=== PATIENT | female | born 1980 | race Caucasian/White ===

== ENCOUNTER 2020-03-01 13:14 | Emergency (ER) | payer BC, SELFPAY ==
--- NOTE | ~2020-03-01 | XR_ITS ---
EXAMINATION: XR chest 1V portable DATE: 03/01/2020 14:35 INDICATION: Cough and shortness of breath. TECHNIQUE: A single frontal view of the chest was obtained. COMPARISON: Chest 2 views 11/02/2014, chest CT 11/03/2015 FINDINGS: The chest demonstrates clear lungs without pneumonia, pleural effusion, or pneumothorax. Th e heart size is normal. IMPRESSION: 1. No acute cardiopulmonary disease. Reviewed, dictated and finalized at location B.
[2020-03-01 13:16] VITALS: BP 143/70; PULSE 78; RESP 20; TEMP 37; O2SAT 98
--- NOTE | 2020-03-01 13:26 | ED.GENADULT ---
HPI - General Adult General Chief complaint: Upper Respiratory Infection Stated complaint: sob,cough Time Seen by Provider: 03/01/20 13:26 Source: patient History of Present Illness HPI narrative: 39 years old white female presents with coughing, sore throat, not feeling well for the last 5 days associated with loss of smell and taste. Patient denies exposure to anybody known to have COVID-19. Patient lives with her family Related Data Home Medications Medication Instructions Recorded Confirmed vit [id number] 07/11/19 Allergies Allergy/AdvReac Type Severity Reaction Status Date / Time No Known Allergies Allergy Unknown Verified 07/11/19 13:52 Review of Systems Review of Systems: Narrative: CONSTITUTIONAL: Denies fever, chills, or sweats. EYES: Denies visual changes, redness, or discharge. ENT: Denies rhinorrhea, congestion, sore throat, or otalgia. CARDIOVASCULAR: Denies chest pain, palpitations, or edema. RESPIRATORY: Denies cough or dyspnea. GASTROINTESTINAL: Denies abdominal pain, nausea, vomiting, or diarrhea. GENITOURINARY: Denies dysuria or hematuria. SKIN: Denies rash or itching. MUSCULOSKELETAL: Denies back pain, joint pain, or myalgia. NEUROLOGIC: Denies headache, numbness, or weakness. PSYCHIATRIC: Denies anxiety or depression. [facility] Social History Social History Smoking status: Never smoker Alcohol intake: current Exam Narrative: Exam Narrative: General appearance: Well-developed, well-nourished, does not look in pain or distress Skin: Normal color Head: Normocephalic, nontraumatic Eyes: Clear conjunctiva ENT: Oropharynx normal, ears normal, nose normal Neck: Supple, nontender Chest and respiratory: Airway patent, no respiratory distress, no accessory muscle use Heart: Regular rate/rhythm Abdomen: Soft, nontender, no organomegaly, quiet bowel sounds Vascular: Normal peripheral pulses, normal capillary refill. Musculoskeletal: Normal range of motion, nontender back Neurologic: Alert and oriented ?3, RN GASTROENTEROLOGY is normal as tested, no gross motor deficit Course Course Emergency Course: Stable Consultations Consultation #1: Dr. Cormier Date: 03/01/20 Time: 14:57 Vital Signs Vital signs: Vital Signs Temperature 37.0 C 03/01/20 13:16 Pulse Rate 78 03/01/20 13:16 Respiratory Rate 20 03/01/20 13:16 Blood Pressure 143/70 H 03/01/20 13:16 Pulse Oximetry 98 03/01/20 13:16 Temperature 37.0 C 03/01/20 13:16 Pulse Rate 78 03/01/20 13:16 Respiratory Rate 20 03/01/20 13:16 Blood Pressure 143/70 H 03/01/20 13:16 Pulse Oximetry 98 03/01/20 13:16 Medical Decision Making MDM Narrative Medical decision making narrative: upper respiratory viral infection including COVID-19 is my concern. Labs, chest x-ray, rapid strep test, COVID-19 test ordered. Further plan to follow Vital Signs Vital Signs: Vital Signs Temperature 37.0 C 03/01/20 13:16 Pulse Rate 78 03/01/20 13:16 Respiratory Rate 20 03/01/20 13:16 Blood Pressure 143/70 H 03/01/20 13:16 Pulse Oximetry 98 03/01/20 13:16 Temperature 37.0 C 03/01/20 13:16 Pulse Rate 78 03/01/20 13:16 Respiratory Rate 20 03/01/20 13:16 Blood Pressure 143/70 H 03/01/20 13:16 Pulse Oximetry 98 03/01/20 13:16 Lab Data Result diagrams: 03/01/20 13:55 03/01/20 13:55 Labs: Lab Results 03/01/20 03/01/20 03/01/20 Range/Units 13:30 13:55 13:55 WBC 7.0 (4.5-10.0) K/mm3 RBC 5.02 (4.2-5.4) M/mm3 Hgb 14.4 (12.0-15.0) g/dL Hct 42.9 (37.0-47.0) % MCV 85.5 (80-100) fl MCH 28.7 (26-34) pg MC
[2020-03-01 14:03] LABS: Basophils Percent Auto 0.6 % (0.2-1.2); Eosinophils Absolute Auto 0.3 K/mm3 (0-0.3); Eosinophils Percent Auto 4.8 % (0-4.4); Hematocrit 42.9 % (37.0-47.0); Hemoglobin 14.4 g/dL (12.0-15.0); Immature Granulocyte Absolute 0.02 K/mm3 (0.00-0.031); Immature Granulocyte Percent A 0.3 % (0-0.5); Lymphocytes Absolute Auto 2.29 K/mm3 (0.9-3.2); Lymphocytes Percent Auto 32.5 % (18.3-44.2); Mean Corpuscular HGB Conc 33.6 g/dl (32-36); Mean Corpuscular Hemoglobin 28.7 pg (26-34); Mean Corpuscular Volume 85.5 fl (80-100); Mean Platelet Volume 10.2 fl (7.4-10.4); Monocytes Absolute Auto 0.6 K/mm3 (0.1-0.6); Monocytes Percent Auto 8.9 % (2.6-8.5); Neutrophils Absolute Auto 3.7 K/mm3 (1.3-6.7); Neutrophils Percent Auto 52.9 % (45.5-73.1); Platelet Count Result 269 k/mm3 (150-375); Red Blood Count 5.02 M/mm3 (4.2-5.4); Red Cell Distribution Width 13.2 % (11.5-14.5)
[2020-03-01 14:14] LABS: Alanine Aminotransferase 14 U/L (4-35); Albumin Level 4.1 g/dL (3.5-5.1); Alkaline Phosphatase 63 U/L (38-126); Anion Gap 6 mmol/L (8-16); Aspartate Amino Transferase 21 U/L (14-36); Bilirubin,Total 0.4 mg/dL (0.2-1.3); Blood Urea Nitrogen 8 mg/dL (7-17); Carbon Dioxide 27 mmol/L (22-30); Chloride 105 mmol/L (98-107); Estimated CRCL calculation 14 ml/min; Estimated Glomerular Filt Rate > 60; Glucose 103 mg/dL (65-105); Potassium 4.4 mmol/L (3.4-5.0); Sodium 138 mmol/L (137-145)
[2020-03-01 15:04] VITALS: BP 122/78; PULSE 80; RESP 18; O2SAT 99
[2020-03-01 22:50] LABS: SARS-CoV-2 RNA PCR Negative
== END 2020-03-01 15:06 | disposition home or self-care (01) ==
PROVIDERS: Emergency Provider Emergency Medicine; PCP Family Medicine
DX: J06.9 Acute upper respiratory infection, unspecified (principal); Z20.828 Contact with and (suspected) exposure to other viral communicable diseases
CPT/HCPCS: 36415; 71045; 80053; 85025; 87081; 87635; 87880; 99283; C9803; U0003

== ENCOUNTER → 2021-04-06 17:49 | Outpatient (CLI) | payer OTHER, SELFPAY ==
--- NOTE | ~2021-04-06 | MM_ITS ---
EXAMINATION: MM screening jair BI w kodi HISTORY: Screening mammogram TECHNIQUE: Craniocaudal and mediolateral oblique 3-D tomosynthesis images were obtained and synthetic 2-D images were generated. CAD analysis was submitted and interpreted. COMPARISON: No prior mammogram is available for comparison at this institution. BREAST PARENCHYMAL COMPOSITION: There are scattered areas of fibroglandular density. FINDINGS: There is no evidence of suspicious mass, calcification, or architectural distortion to sugg est malignancy in either breast. There has been no suspicious interval change. IMPRESSION: 1. No mammographic evidence of malignancy. 2. Recommend routine screening mammography in one year. BI-RADS Category 1: Negative Reviewed, dictated and finalized at location A.
== END ==
PROVIDERS: PCP Family Medicine; Visit Provider Family Medicine
DX: Z12.31 Encounter for screening mammogram for malignant neoplasm of breast (principal)
CPT/HCPCS: 77063; 77067

== ENCOUNTER 2021-06-14 22:27 | Emergency (ER) | payer OTHER, SELFPAY ==
--- NOTE | ~2021-06-14 | CT_ITS ---
EXAMINATION: CT abdomen pelvis wo con DATE: 06/14/2021 23:32 INDICATION: Bilateral flank pain TECHNIQUE: Computed tomography (CT) of the abdomen and pelvis was performed without intravenous contr ast. The dose-length product (DLP) was 1504.97 mGy-cm. Automated exposure control and iterative recon struction technique were employed. COMPARISON: None FINDINGS: Minimal dependent atelectasis is present in the lung bases. The heart size is normal. The l iver, spleen, pancreas, gallbladder, and adrenal glands are normal. The kidneys are unremarkable. No stones are identified in the kidneys, ureters, or bladder. There is no hydronephrosis or hydroureter. No pathologically enlarged abdominal or pelvic lymph nodes are identified. There is no free intraper itoneal gas or evidence of bowel obstruction. The appendix is normal. There is a 2.9 cm cyst of the l eft ovary. There is severe lumbar spondylosis at L5-S1. A fat-containing umbilical hernia is noted. IMPRESSION: 1. No CT correlate for the patient's symptoms. Reviewed, dictated and finalized at location A. [employer]
[2021-06-14 22:30] VITALS: BP 132/79; PULSE 106; RESP 20; TEMP 36.8; O2SAT 97
[2021-06-14 22:38] VITALS: BP 132/79; PULSE 106; RESP 18; TEMP 36.8; O2SAT 100
[2021-06-14 22:57] LABS: Add Urine Microscopic? YES; Appearance Urine Cloudy (Clear); Bilirubin Urine Negative (Negative); Blood Urine Negative (Negative); Color Urine Yellow (Yellow); Glucose Urine UA Negative (Negative); Ketones Urine Negative (Negative); Leukocyte Esterase Ur Negative LEU/UL (Negative); Mucus Urine Few /lpf; Nitrate Urine Negative (Negative); Protein Urine Negative (Negative); RBC Urine 0-2 /hpf (0-2); Specific Grav Ur 1.021 (1.001-1.035); Squamous Epithelial Cell Urine Many /hpf (Few); Urobilinogen Urine Negative mg/dL (<2.0); WBC Urine 0-3 /hpf
--- NOTE | 2021-06-14 23:05 | ED.BACK ---
HPI - Back Pain/Injury General Chief Complaint: Urogenital-Female Stated Complaint: flank pain, N/V, difficulty urinating Time Seen by Provider: 06/14/21 22:42 Source: patient and RN notes reviewed Mode of arrival: ambulatory Limitations: no limitations History of Present Illness HPI Narrative: This is a 40 year old female who presents for evaluation of bilateral lower back pain. She developed nausea and dysuria on Friday. She developed bilateral lower back pain today, and her pain has been constant. She describes her pain as being punched . She has not taken anything for pain and her pain is worse with movement. She denies fever, chills, abnormal vaginal discharged or vomiting. She denies history of kidney stones. Related Data Allergies Allergy/AdvReac Type Severity Reaction Status Date / Time No Known Allergies Allergy Unknown Verified 06/14/21 22:39 Review of Systems Review of Systems: All systems reviewed & are unremarkable except as noted in HPI and below PMFSH Past Medical History Medical History (Updated 06/15/21 @ 00:51 by Jeniffer Mercer MD) Anxiety Surgical History Surgical History (Updated 06/14/21 @ 23:07 by Jeniffer Mercer MD) H/O section Social History Social History (Updated 05/09/21 @ 11:05 by Anum Carpenter CMA) Alcohol intake: current Substance use type: does not use Gender identity (if verbalized by the patient): Female Exam Const: General: alert Nutritional Appearance: obese Orientation/consciousness: patient oriented x3 Other: patient is crying in pain Neck: Neck: no lymphadenopathy Resp: Effort & Inspection: normal respiratory effort and no retractions Auscultation: clear to auscultation bilaterally Cardio: Rate: regular rate Rhythm: regular rhythm Heart sounds: no murmurs GI: GI Palp: Yes Soft to palpation, No Tenderness to palpation present (GI) and No Guarding due to palpation present (GI) Auscultation: normal bowel sounds : General: Yes no CVA tenderness Back/Spine/Pelvis: Back: no CVA tenderness Thoracic/Lumbar Spine: pain with thoraco-lumbar ROM and paraspinal muscle tenderness Skin: General skin exam: normal color Rashes: no rashes Neuro: General: patient oriented x3, moves all extremities and CN's II-XI intact bilaterally Extrem: General: normal to inspection Psych: Mental Status: mental status grossly normal Affect: normal affect Course Reevaluation(s) Reevaluation #1: Patient states she feels better. I discussed labs and UA are unremarkable. CT scan shows left ovarian cyst but I Think her pain is due to musculoskeletal back pain. I discussed with patient discharge plan and treatment. Date: 06/15/21 Time: 00:46 Vital Signs Vital signs: Vital Signs Temperature 98.2 F 06/14/21 22:30 Pulse Rate 106 H 06/14/21 22:30 Respiratory Rate 20 06/14/21 22:30 Blood Pressure 132/79 06/14/21 22:30 Pulse Oximetry 97 06/14/21 22:30 Temperature 98.2 F 06/14/21 22:38 Pulse Rate 100 06/14/21 23:58 Respiratory Rate 16 06/14/21 23:58 Blood Pressure 130/76 06/14/21 23:58 Pulse Oximetry 99 06/14/21 23:58 MDM - Back Pain/Injury Lab Data Attestation: I reviewed the patient's lab results. Result diagrams: 06/14/21 23:01 06/14/21 23:01 Labs: Lab Results 06/14/21 06/14/21 06/14/21 Range/Units 22:45 23:01 23:01 WBC 7.8 (4.5-10.0) K/mm3 RBC 4.56 (4.2-5.4) M/mm3 Hgb 13.6 (12.0-15.0) g/dL Hct 40.3 (37.0-47.0) % MCV 88.4 (80-100) fl MCH 29.8 (26-34) pg MCHC 33.7 (32-36) g/dl RDW 12.9 (11.5-14.5) % Plt Count 244 (150-375) k/mm3 MPV 9.8 (7.4-10.4) fl Immature Gran % (Auto) 0.1 (0-0.5) % Neut % (Auto) 61.4 (45.5-73.1) % Lymph % (Auto) 29.1 (18.3-44.2) % Crockett % (Auto) 6.3 (2.6-8.5) % Eos % (Auto) 2.8 (0-4.4) % Baso % (Auto) 0.3 (0.2-1.2) % Lymph # (Auto) 2.26 (0.9-3.2) K/mm3 [place]ckett
[2021-06-14 23:06] LABS: Basophils Percent Auto 0.3 % (0.2-1.2); Eosinophils Absolute Auto 0.2 K/mm3 (0-0.3); Eosinophils Percent Auto 2.8 % (0-4.4); Hematocrit 40.3 % (37.0-47.0); Hemoglobin 13.6 g/dL (12.0-15.0); Immature Granulocyte Absolute 0.01 K/mm3 (0.00-0.031); Immature Granulocyte Percent A 0.1 % (0-0.5); Lymphocytes Absolute Auto 2.26 K/mm3 (0.9-3.2); Lymphocytes Percent Auto 29.1 % (18.3-44.2); Mean Corpuscular HGB Conc 33.7 g/dl (32-36); Mean Corpuscular Hemoglobin 29.8 pg (26-34); Mean Corpuscular Volume 88.4 fl (80-100); Mean Platelet Volume 9.8 fl (7.4-10.4); Monocytes Absolute Auto 0.5 K/mm3 (0.1-0.6); Monocytes Percent Auto 6.3 % (2.6-8.5); Neutrophils Absolute Auto 4.8 K/mm3 (1.3-6.7); Neutrophils Percent Auto 61.4 % (45.5-73.1); Platelet Count Result 244 k/mm3 (150-375); Red Blood Count 4.56 M/mm3 (4.2-5.4); Red Cell Distribution Width 12.9 % (11.5-14.5); White Blood Count 7.8 K/mm3 (4.5-10.0)
[2021-06-14] MEDS: MORPHINE SULFATE (*CRX) 4 MG/ML INJ IV PUSH (23:08)
[2021-06-14] MEDS: ONDANSETRON INJ 4 MG/2 ML VIAL IV PUSH (23:08)
[2021-06-14] MEDS: SODIUM CHLORIDE 0.9% IV 1,000 ML 999 ML IV CONT (23:09)
[2021-06-14] MEDS: KETOROLAC 30 MG/ML VIAL (*BKC) IV PUSH (23:11)
[2021-06-14 23:23] LABS: Alanine Aminotransferase 17 U/L (4-35); Albumin Level 3.9 g/dL (3.5-5.1); Alkaline Phosphatase 53 U/L (38-126); Anion Gap 6 mmol/L (8-16); Aspartate Amino Transferase 24 U/L (14-36); Bilirubin,Total 0.3 mg/dL (0.2-1.3); Blood Urea Nitrogen 17 mg/dL (7-17); Calcium 8.5 mg/dL (8.4-10.2); Carbon Dioxide 23 mmol/L (22-30); Chloride 106 mmol/L (98-107); Estimated CRCL calculation 116 ml/min; Estimated Glomerular Filt Rate > 60; Glucose 100 mg/dL (65-110); Lipase 60 U/L (23-300); Potassium 4.2 mmol/L (3.4-5.0); Sodium 135 mmol/L (137-145)
[2021-06-14 23:58] VITALS: BP 130/76; PULSE 100; RESP 16; O2SAT 99
== END 2021-06-15 01:20 | disposition home or self-care (01) ==
PROVIDERS: Emergency Medicine; Emergency Provider General Practice; PCP Family Medicine
DX: N83.202 Unspecified ovarian cyst, left side (principal); M54.50 Low back pain, unspecified
CPT/HCPCS: 36415; 74176; 80053; 81001; 81025; 83690; 85025; 96361; 96374; 96375; 99284; J1885; J2270; J2405; J7030

== ENCOUNTER → 2021-08-27 10:38 | Outpatient (CLI) | payer OTHER, SELFPAY ==
[2021-08-27 18:01] LABS: SARS-CoV-2 RNA PCR Negative
== END ==
PROVIDERS: PCP Family Medicine; Visit Provider Physician Assistant Medical
DX: R05.9 Cough, unspecified (principal); R50.9 Fever, unspecified; Z20.822 Contact with and (suspected) exposure to COVID-19
CPT/HCPCS: C9803; U0003; U0005

== ENCOUNTER → 2022-05-27 15:00 | Outpatient (CLI) | payer OTHER, SELFPAY ==
--- NOTE | ~2022-05-27 | MM_ITS ---
EXAMINATION: MM screening jair BI w kodi HISTORY: Screening mammogram TECHNIQUE: Craniocaudal and mediolateral oblique 3-D tomosynthesis images were obtained and synthetic 2-D images were generated. CAD analysis was submitted and interpreted. COMPARISON: 04/06/2021 bilateral screening mammogram BREAST PARENCHYMAL COMPOSITION: There are scattered areas of fibroglandular density. FINDINGS: There is no evidence of suspicious mass, calcification, or architectural distortion to sugg est malignancy in either breast. There has been no suspicious interval change. IMPRESSION: 1. No mammographic evidence of malignancy. 2. Recommend routine screening mammography in one year. BI-RADS Category 1: Negative Reviewed, dictated and finalized at location A. MAKER
== END ==
PROVIDERS: PCP Family Medicine; Visit Provider Family Medicine
DX: Z12.31 Encounter for screening mammogram for malignant neoplasm of breast (principal)
CPT/HCPCS: 77063; 77067

== ENCOUNTER → 2022-10-10 09:29 | Outpatient (CLI) | payer OTHER, SELFPAY ==
--- NOTE | ~2022-10-10 | US_ITS ---
Pelvic ultrasound. Clinical History: Left ovarian cyst Technique: Realtime transabdominal and transvaginal scanning of the pelvis was performed. Color flow Doppler and Doppler spectral analysis were performed. Findings: The uterus is anteverted. The endometrial stripe has a thickness of 8 mm. No focal mass is identified. The right ovary measures 1.9 x 2.8 x 1.5 cm. No significant right ovarian or adnexal mass is seen. The left ovary measures 3.5 x 1.9 x 2.5 cm. No significant left ovarian or adnexal mass is seen. Vascular flow present in both ovaries on Doppler spectral analysis. There is no evidence of free fluid in the cul de sac. Impression: No significant abnormality seen. Reviewed, dictated and finalized at [facility]. Impression: No significant abnormality seen.
== END ==
PROVIDERS: PCP Family Medicine; Visit Provider Family Medicine
DX: N83.202 Unspecified ovarian cyst, left side (principal)
CPT/HCPCS: 76830; 76856

== ENCOUNTER 2023-05-11 10:35 | Emergency (ER) | payer OTHER, SELFPAY ==
[2023-05-11 10:52] VITALS: BP 112/52; PULSE 70; RESP 16; TEMP 36.8; O2SAT 98
--- NOTE | 2023-05-11 11:05 | ED.GENADULT ---
HPI - General Adult General Chief complaint: Skin/Abscess/Foreign Body Stated complaint: bee sting Source: patient Mode of arrival: ambulatory Limitations: no limitations History of Present Illness HPI narrative: Patient presents for evaluation of insect stings that occurred just prior to arrival. She indicates she has an allergy to bee stings. She and her family were having family photos performed at the time of the stings. She sustained one to the right upper arm another to the 4th digit of the right hand. She has associated redness in RUE and 4th digit of right hand, and affected digit is edematous. No difficulty breathing or swallowing. She is right hand dominant. She is not diabetic. She has not taken any medication for her symptoms. Two of her children are also here being evaluated for insect stings. Related Data Home Medications Medication Instructions Recorded Confirmed multivitamin 1 tablet PO DAILY 05/09/22 05/11/23 Allergies Allergy/AdvReac Type Severity Reaction Status Date / Time No Known Allergies Allergy Unknown Verified 05/11/23 10:54 Review of Systems Review of Systems: CONSTITUTIONAL: Denies fever, chills, or sweats. EYES: Denies visual changes, redness, or discharge. ENT: Denies rhinorrhea, congestion, sore throat, or otalgia. CARDIOVASCULAR: Denies chest pain, palpitations, or edema. RESPIRATORY: Denies cough or dyspnea. GASTROINTESTINAL: Denies abdominal pain, nausea, vomiting, or diarrhea. GENITOURINARY: Denies dysuria or hematuria. SKIN: Reports insect stings to RUE and 4th digit of right hand with associated redness MUSCULOSKELETAL: Reports swelling to 4th digit of right hand. Denies back pain, joint pain, or myalgia. NEUROLOGIC: Denies headache, numbness, dizziness, or weakness. PSYCHIATRIC: Denies anxiety or depression. [facility] Past Medical History Medical History Anxiety Ovarian cyst 10.10.22 pelvic US. no cyst Surgical History Surgical History H/O section Family History Family History Mother Family history non-contributory Social History Social History (Reviewed 05/11/23 @ 11:09 by Rios Parra, [facility], ) Smoking status: Never smoker Alcohol intake: current Substance use type: does not use Lack of Transportation: No Lack of Food: Never True Current Housing: I Have Housing Concerned About Future Housing: No Difficulty Paying Gas/Electric Bills: No Difficulty Paying for Meds: No Currently Unemployed: No Education: Bachelor's Degree Difficulty w/ Childcare or Family Care: No Gender identity (if verbalized by the patient): Female Exam Narrative: GENERAL: Well-appearing, well-nourished, and in no acute distress. HEAD: Normocephalic, atraumatic. EYES: PERRLA and EOMI. ENT: Nares clear, no rhinorrhea or epistaxis. Mucous membranes moist. Oropharynx without tonsillar hypertrophy exudate or other lesions. Bilateral TMs pearly montes nonbulging NECK: Supple. No adenopathy or masses. No carotid bruits or JVD CHEST: Clear to auscultation. No respiratory distress. No wheezes rales or rhonchi HEART: Regular rate and rhythm. No murmur heard. Normal peripheral pulses. ABDOMEN: Soft, nontender, nondistended, normal active bowel sounds. EXTREMITIES: Normal range of motion. No edema. SKIN: There is erythema to the 4th digit of right hand. There is a 5 x 5 cm area of erythema to the right upper arm NEURO: No focal deficits. Alert and oriented x3. PSYCH: Normal mood and affect. Course Course Emergency Course: this is a 42-year-old female who presented for evaluation of insect stings. She has no airway compromise. I recommended she take benadryl. Right now there does not appear to be a need for systemic steroids, however due to her allergy to bee
== END 2023-05-11 11:10 | disposition home or self-care (01) ==
PROVIDERS: Emergency Provider Nurse Practitioner; PCP Family Medicine
DX: T63.441A Toxic effect of venom of bees, accidental (unintentional), initial encounter (principal); F41.9 Anxiety disorder, unspecified
CPT/HCPCS: 99213; G0463

== ENCOUNTER 2024-01-06 16:23 | Outpatient (CLI) | payer OTHER, SELFPAY ==
--- NOTE | ~2024-01-06 | MM_ITS ---
EXAMINATION: MM screening jair BI w kodi HISTORY: Screening TECHNIQUE: Craniocaudal and mediolateral oblique 3-D tomosynthesis images were obtained and synthetic 2-D images were generated. CAD analysis was submitted and interpreted. COMPARISON: Comparison to multiple prior studies sequentially, with oldest reviewed study dated 04/06. BREAST PARENCHYMAL COMPOSITION: The breasts are heterogeneously dense, which may obscure small masses . FINDINGS: There is no evidence of suspicious mass, calcification, or architectural distortion to sugg est malignancy in either breast. There has been no suspicious interval change. IMPRESSION: 1. No mammographic evidence of malignancy. 2. Recommend routine screening mammography in one year. BI-RADS Category 1: Negative Reviewed, dictated and finalized at location B.
== END 2024-01-06 16:24 ==
LOC: MICIMG 16:23
PROVIDERS: PCP Family Medicine; Visit Provider Family Medicine
DX: Z12.31 Encounter for screening mammogram for malignant neoplasm of breast (principal)
CPT/HCPCS: 77063; 77067

== ENCOUNTER 2025-01-06 16:02 | Outpatient (CLI) | payer OTHER, SELFPAY ==
--- NOTE | ~2025-01-06 | MM_ITS ---
EXAMINATION: MM screening jair BI w kodi HISTORY: Screening TECHNIQUE: Craniocaudal and mediolateral oblique 3-D tomosynthesis images were obtained and synthetic 2-D images were generated. CAD analysis was submitted and interpreted. COMPARISON: Comparison to multiple prior studies sequentially, with oldest reviewed study dated 04/06. BREAST PARENCHYMAL COMPOSITION: Dense: The breasts are heterogeneously dense, which may obscure small masses FINDINGS: There is no evidence of suspicious mass, calcification, or architectural distortion to sugg est malignancy in either breast. There has been no suspicious interval change. IMPRESSION: 1. No mammographic evidence of malignancy. 2. Recommend routine screening mammography in one year. BI-RADS Category 1: Negative Reviewed, dictated and finalized at location A.
== END 2025-01-06 16:03 | disposition home or self-care (01) ==
LOC: MICIMG 16:03
PROVIDERS: PCP Family Medicine; Visit Provider Family Medicine
DX: Z12.31 Encounter for screening mammogram for malignant neoplasm of breast (principal)
CPT/HCPCS: 77063; 77067

== ENCOUNTER 2025-02-28 09:17 | Day surgery (SDC) | payer OTHER, SELFPAY ==
[2024-10-19 12:56] VITALS: BMI 27.6
--- OUTSIDE RECORDS SUMMARY | 2025-02-28 09:50 | XMS_ITS | Clinical Summary ---
Author Organization [facility] Address [address] [place] [phone] Phone Care Team Providers Care Residential Real Estate Appraiser Name Role Phone Joseph Cormier MD Primary Care Provider [phone]- [phone] Allergies No known active allergies Medications PNV [id number] 1-DSS-DHA ORAL Take by mouth. Active Breast Pump Device Double electric breast pump.. 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, rhesus, in , second trimester, not applicable or unspecified fetus: titer 1:1024 09/30/2018 Immunizations Immunization Administration Dates Next Due (ADACEL/BOOSTRIX)(10 YR UP) TDAP VACCINE, 0.5ML, IM 01/20/2019 Family History Medical History Relation Name Comments Healthy Daughter 1 Healthy Son Relation Name Status Comments Daughter 1 Alive Daughter 2 Katherine Alive Son Alive Social History Tobacco Use Types Packs/Day Years Used Date Smoking Tobacco: Never Smokeless Tobacco: Never Alcohol Use Standard Drinks/Week Comments Not Currently 0 (1 standard drink = 0.6 oz pur e alcohol) Comments No Sex and Gender Information Value Date Recorded Sex Assigned at Not on file 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 Gender Identity Not on file Sexual Orientation Not on file Last Filed Vital Signs Vital Sign Reading Time Taken Comments Blood Pressure 124/78 04/12/2019 11:51 AM CDT Pulse 81 01/28/2019 10:00 AM CDT Temperature 36.9 C (98.5 F) 01/28/2019 10:00 AM CDT Respiratory Rate 18 01/28/2019 10:00 AM CDT Oxygen Saturation 100% 01/28/2019 10:00 AM CDT Inhaled Oxygen Concentration - - Weight 113.4 kg (250 lb) 04/12/2019 11:51 AM CDT Height 180.3 cm (5' 11) 04/12/2019 11:51 AM CDT Body Mass Index 34.87 04/12/2019 11:51 AM CDT Plan of Treatment Health Maintenance Due Date Last Done Comments HEPATITIS B VACCINES (1 of 3 - 19+ 3-dose series) 1997 HPV/Cotest (21-29) 1999 CERVICAL CANCER SCREENING 2008 HPV/Cotest (30-65) 2008 PAP SMEAR 2008 BREAST CANCER SCREENING 2018 COLORECTAL SCREENING 2023 Colorectal Cancer Screening 2023 FIT-DNA Q 3 years 2023 FIT/FOBT Q 1 year 2023 Flex Sig/CT Colonography Q 5 years 2023 INFLUENZA VACCINE (#1) 2025 DTAP/TDAP/TD VACCINES (2 - T d or Tdap) 01/20/2029 01/20/2019 HPV VACCINES Aged Out No longer eligi ble based on patient's age to complete this topic Insurance [facility] BLUE ACCESS/TRUE BLUE PPO [facility] BLUE ACCESS/TRUE BLUE PPO [facility] BLUE ACCESS/TRUE BLUE PPO [employer] Advance Directives For more information, please contact: [phone] * Full Code (Latest Code Status on File) Date Activated Date Inactivated Comments 01/24/2019 4:52 PM 01/28/2019 6:14 PM * Full Code Date Activated Date Inactivated Comments 01/24/2019 8:31 AM 01/24/2019 11:28 AM Care Teams Residential Real Estate Appraiser Relationship Specialty Start Date End Date Joseph Cormier MD PCP - General Family Practice 07/10/15
--- OUTSIDE RECORDS SUMMARY | 2025-02-28 09:50 | XMS_ITS | Encounter Summary ---
Author Organization [facility] Address 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 [place] [id number] documented in this encounter Visit Diagnoses Not on filedocumented in this encounter Care Teams Digital Content Specialist Relationship Specialty Start Date End Date Joseph Cormier MD PCP - General Family Practice 07/10/15 documented as of this encounter
--- OUTSIDE RECORDS SUMMARY | 2025-02-28 09:50 | XMS_ITS | Encounter Summary ---
Author Organization [facility] Address [address] [place] [address] Care Team Providers Care Rn Allergy Name Role Phone Unavailable Primary Care Provider Unavailabl e Encounter Details Date Type Department Care Team (Late st Contact Info) Description 07/29/2018 Lab Requisition [facility] DermPath Lab [address] [place] [id number] Cheikh Nieto MD [address] [place] [address] Social History Tobacco Use Types Packs/Day Years Used Date Smoking Tobacco: Never Assessed Comments Unknown Sex and Gender Information Value Date Recorded Sex Assigned at Not on file 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 Gender Identity Not on file Sexual Orientation Not on file documented as of this encounter Plan of Treatment Not on file documented as of this encounter Procedures Procedure Name Priority Date/Time Associated Diagnosis Comments DERMATOPATHOLOGY Routine 07/28/2018 12:0 0 AM DRAFTING LAYOUT WORKER documented in this encounter Results * DERMATOPATHOLOGY (07/28/2018 12:00 AM DRAFTING LAYOUT WORKER) Case Report Dermatopathology Report Case: [id number] Authorizing Provider: Cheikh Nieto MD Collected: 07/28/2018 12:00 AM Pathologist: Scott Quarles MD Received: 07/29/2018 12:10 PM Specimens: A) - Skin, right of midline ant neck B) - Skin, ant left side of neck 9 4:55 PM DRAFTING LAYOUT WORKER DERMATOPATHOLOGY LABORATORY Final Diagnosis Specimen A. 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 4:55 PM [facility] DERMATOPATHOLOGY LABORATORY Gross Description Specimen A: Received is one formalin filled container labeled with the patient's name and designated right of midline ant neck. The specimen consists of a punch excision measuring [id number]. The epidermal surface consists of a centrally located [id number] papule. The margin is inked green. The specimen is bisected and submitted in 1 cassette. Jar 0. Specimen B: Received is one formalin filled container labeled with the patient's name and designated ant left side of neck. The specimen consists of a shave biopsy measuring [id number]. Jar 0. 4:55 PM [facility] DERMATOPATHOLOGY LABORATORY Microscopic Description Specimen A. SKIN, right of midline ant neck: There are nests of melanocytes at the dermal-epidermal junction and within the dermis. Specimen B. SKIN, ant left side of neck: There are nests of melanocytes at the dermal-epidermal junction and within the dermis. Some melanocytes are splayed between collagen bundles and are localized around adnexal structures. 4:55 PM [facility] DERMATOPATHOLOGY LABORATORY Disclaimer An external and internal positive and negative controls are appropriate for the histochemical, immunohistochemical and immunofluorescence stain(s) in this case (if any), except where stated explicitly. The performance characteristics of the stain(s) cited in this report were developed and its performance characteristic determined by the Dermatopathology Laboratory at [facility], directed by Dr. Radha Quarles. These tests need not be, and therefore are not, approved by the [place] Food and Drug Administration. The tests are used for clinical purposes. Billing Codes Specimen Charges Stain Charges 95018 93748 1 1 4:55 PM [facility] DERMATOPATHOLOGY LABORATORY Embedded Images 4:55 PM [facility] DERMATOPATHOLOGY LABORATORY Pathology/Cytology TISSUE SPECIMEN FROM SKIN / Unknown 07/28/2018 07/29/2018 12:10 PM DRAFTING LAYOUT WORKER Miscellaneous samples (specimen) TISSUE SPECIMEN FROM SKIN / Unknown 07/28/2018 07/29/2018 12:10 PM DRAFTING LAYOUT WORKER Cheikh Nieto MD LAB - PATHOLOGY/CYTOLOGY ORD ERABLES Final Result DERMATOPATHOLOGY LABORATORY [facility] - Department of Dermatology [address], [address] [place] [address], [facility] [phone] documented in this encounter Visit Diagnoses Not on filedocumented in this encounter
--- OUTSIDE RECORDS SUMMARY | 2025-02-28 09:50 | XMS_ITS | Clinical Summary ---
Author Organization [facility] Address [address] [place] [address] Care Team Providers Care Circuit Rider Name Role Phone Unavailable Primary Care Provider Unavailabl e Source Comments [facility] [employer],non-owned Affiliates and Associated Physician Practices is amultiple site organization consisting of ambulatory clinics and hospital sitesin [place], [place], [place] and [place]. This disclosure is being madepursuant to the Care Everywhere program and may not contain all information available regarding this patient. 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[employer] Gender Identity Not on file Sexual Orientation Not on file Plan of Treatment Health Maintenance Due Date Last Done Comments COLOGUARD (AGES 45-75) - COL ON CA SCREENING 1978 COLON MONITORING 1978 COLONOSCOPY - COLON CA SCREENING 1978 CT COLONOGRAPHY - COLON CA SCREENING 1978 Colorectal Cancer Screening 1978 FIT - COLON CA SCREENING 1978 FLEX SIG - COLON CA SCREENING 1978 LIPID TESTING 1978 MAMMOGRAM 1978 HIV SCREENING 1993 HEPATITIS C SCREENING 08/05/1996 DTAP/TDAP/TD VACCINES (1 - Tdap) 1997 HEPATITIS B VACCINE (1 of 3 - 19+ 3-dose series) 1997 COVID-19 VACCINE ( - 2023-2 5 season) 2024 DEPRESSION SCREENING 07/21/2024 INFLUENZA VACCINE (#1) 2025 ZOSTER VACCINE (1 of 2) 2028 HIB VACCINE Aged Out No longer eligi ble based on patient's age to complete this topic HPV VACCINE Aged Out No longer eligi ble based on patient's age to complete this topic MENINGOCOCCAL (Group B) VACC INE SHARED DECISION-MAKING Aged Out No longer eligibl e based on patient's age to complete this topic MENINGOCOCCAL GROUPS A/C/Y/W VACCINE Aged Out No longer eligible b ased on patient's age to complete this topic PNEUMOCOCCAL VACCINE Aged Out No long er eligible based on patient's age to complete this [place] [address] [place] [address] [facility]
[2025-02-28 10:07] VITALS: BP 108/79; PULSE 65; RESP 16; TEMP 36.9; O2SAT 98
--- NOTE | 2025-02-28 10:22 | P.PNAN_ITS ---
Anes - Initial Pre Proc Eval Procedure: Operation Date: 02/28/25 11:00 Proposed Procedures p Screening Colonoscopy - Lazarus Whalen MD Date/Time: 02/28/25 10:22 Surgeon: Lazarus Whalen MD Pre Op Diagnosis: Neoplasm Screening Patient Data Age: 44 Gender: F Height: 1.8 m Weight: 90 kg Last Vital Signs Temp 98.4 F 02/28/25 10:07 Pulse 65 02/28/25 10:07 Resp 16 02/28/25 10:07 BP 108/79 02/28/25 10:07 Pulse Ox 98 02/28/25 10:07 O2 Del Method Room Air 02/28/25 10:07 Allergies Allergy/AdvReac Type Severity Reaction Status Date / Time No Known Allergies Allergy Unknown Verified 02/18/25 14:00 Home Medications ?Medication ?Instructions ?Recorded ?Confirmed ?Type multivitamin 1 tablet PO DAILY 05/09/22 02/18/25 History cholecalciferol (vitamin D3) 25 25 mcg PO DAILY 08/12/24 02/18/25 History mcg (1,000 unit) capsule fluoxetine 40 mg capsule 40 mg PO QAM #90 caps 08/12/24 02/18/25 Rx loratadine 10 mg tablet (Claritin) 10 mg PO DAILY 10/19/24 02/18/25 History Patient hx anesthesia problems: none Family hx anesthesia problems: none Results Review: All pre-operative results and documents have been reviewed as part of the pre- operative evaluation. [facility] Past Medical History Medical History Ovarian cyst 3.23.23 pelvic US. no cyst Anxiety Surgical History Surgical History H/O section Family History Family History Mother Family history non-contributory Social History Social History (Updated 08/12/24 @ 15:08 by Mayra Dennis MA) Smoking status: Never smoker Alcohol intake: never Substance use: current Substance use type: marijuana Last use: friday Do You Feel Safe in your Home?: Yes Lack of Transportation: No Lack of Food: Never True Current Housing: I Have Housing Concerned About Future Housing: No Difficulty Paying Gas/Electric Bills: No Difficulty Paying for Meds: No Currently Unemployed: No Education: Bachelor's Degree Difficulty w/ Childcare or Family Care: No Living arrangements: alone Gender identity (if verbalized by the patient): Female Spiritual care concerns: No Anes - Eval Final PreProcedure Day of Procedure 02/28/25 10:22 Heart: regular rate and rhythm Lungs: clear to auscultation Airway: Mallampati scale class III Neurological: alert and oriented Last oral intake: >/= 8 hours ASA classification: II Anesthetic plan: proceed Anesthesia type and monitoring: monitored anesthesia care Results Review: All pre-operative results and documents have been reviewed as part of the pre- operative evaluation. Informed Consent: The patient's anesthetic plan and its attendant risks and benefits were discussed with the patient/family/POA. Questions were solicited and answers provided to the satisfaction of the patient/family/POA.
--- NOTE | 2025-02-28 10:48 | HP_ITS ---
This report was moved to the correct visit on 03/03/2025. The original report was signed by Lazarus Whalen MD on 02/28/25 1048. H&P: HPI History of Present Illness Date/Time: 02/28/25 10:47 Chief Complaint: Screening colonoscopy Narrative: This is the patient's first colonoscopy. There are no GI symptoms and there is no family history of colorectal cancer. Review of Systems Review of Systems: All systems reviewed & are unremarkable except as noted in HPI and below PMFSH Past Medical History Medical History Ovarian cyst 10.10.22 pelvic US. no cystAnxiety Surgical History Surgical History H/O section Family History Family History Mother Family history non-contributory Social History Social History (Updated 08/12/24 @ 15:08 by Mayra Dennis MA) Smoking status: Never smoker Alcohol intake: never Substance use: current Substance use type: marijuana Last use: friday Do You Feel Safe in your Home?: Yes Lack of Transportation: No Lack of Food: Never True Current Housing: I Have Housing Concerned About Future Housing: No Difficulty Paying Gas/Electric Bills: No Difficulty Paying for Meds: No Currently Unemployed: No Education: Bachelor's Degree Difficulty w/ Childcare or Family Care: No Living arrangements: alone Gender identity (if verbalized by the patient): Female Spiritual care concerns: No Meds Home Medications and Allergies Home Medications ?Medication ?Instructions ?Recorded ?Confirmed ?Type multivitamin 1 tablet PO DAILY 05/09/22 02/18/25 History cholecalciferol (vitamin D3) 25 25 mcg PO DAILY 08/12/24 02/18/25 History mcg (1,000 unit) capsule fluoxetine 40 mg capsule 40 mg PO QAM #90 caps 08/12/24 02/18/25 Rx loratadine 10 mg tablet (Claritin) 10 mg PO DAILY 10/19/24 02/18/25 History Allergies Allergy/AdvReac Type Severity Reaction Status Date / Time No Known Allergies Allergy Unknown Verified 02/18/25 14:00 Exam Const: General: cooperative and healthy appearing Resp: Effort & Inspection: normal respiratory effort and able to speak in complete sentences Auscultation: clear to auscultation bilaterally Cardio: Rate: regular rate Rhythm: regular rhythm GI: Inspection: normal to inspection GI Palp: No No hepatosplenomegaly present Auscultation: normal bowel sounds Rectal Exam: deferred Skin: General skin exam: normal color Psych: Appearance: grossly normal Mental Status: mental status grossly normal Assessment and Plan Assessment and plan (1) Encounter for screening colonoscopy: Code(s): Z12.11 - Encounter for screening for malignant neoplasm of colon Status: Acute Assessment and Plan: The patient is deemed a good candidate for the procedure. Consent signed. Will proceed. Please be advised this is a medical document. It is intended for hima-cf-cwxa communication. It is written in medical language and may contain unfamiliar abbreviations or verbiage. Medical documents are intended to carry relevant information, facts as evident, and the clinical opinion of the practitioner at the time of the encounter. This report may have been done utilizing a voice recognition system. Attempts have been made to correct errors. However, there may be uncorrected grammatical, spelling, and recognition errors present. The file time of this note does not necessarily represent the time the patient was seen. Report Initialized date/time: Lazarus Whalen MD 02/28/258 Electronically signed by: Lazarus Whalen MD 02/28/258
--- NOTE | 2025-02-28 10:55 | WPDANESPN ---
Anes - Prog Note Post-Op Date/Time: 02/28/25 10:55 Vital Signs: Last Vital Signs Temp 98.4 F 02/28/25 10:07 Pulse 65 02/28/25 10:07 Resp 16 02/28/25 10:07 BP 108/79 02/28/25 10:07 Pulse Ox 98 02/28/25 10:07 O2 Del Method Room Air 02/28/25 10:07 Pain Score (VAS): no Patient Feedback: Patient satisfied with anesthetic care.
[2025-02-28] MEDS: LACTATED RINGERS 1,000 ML 150 ML IV CONT (11:10)
[2025-02-28 11:12] VITALS: BP 106/68; PULSE 70; RESP 16; O2SAT 100
[2025-02-28 11:22] VITALS: BP 118/74; PULSE 56; RESP 16; O2SAT 99
[2025-02-28 11:32] VITALS: BP 119/63; PULSE 56; RESP 16; O2SAT 99
== END 2025-02-28 11:44 | disposition home or self-care (01) ==
PROVIDERS: PCP Family Medicine; Visit Provider Internal Medicine Gastroenterology
PROC: 0DJD8ZZ Inspection of Lower Intestinal Tract, Via Natural or Artificial Opening Endoscopic (ICD-10-PCS; CPT 45378; principal; 2025-02-28 11:00)
DX: Z12.11 Encounter for screening for malignant neoplasm of colon (principal)
CPT/HCPCS: 45378